=== PATIENT | female | born 1985 | race Caucasian/White ===

== ENCOUNTER 2024-11-13 17:08 | Emergency (ER) | payer BC, OTHER ==
[2024-11-13 17:38] VITALS: BP 124/69; PULSE 69; RESP 18; TEMP 98.3; BMI 35.9
[2024-11-13] MEDS ORDERED: LIDOCAINE 4% PATCH TP ONE (18:26)
[2024-11-13] MEDS ORDERED: ACETAMINOPHEN 500 MG TABLET (FP) ONE (18:26)
[2024-11-13] MEDS ORDERED: METHOCARBAMOL 500 MG TABLET ONE (18:26)
[2024-11-13] MEDS: METHOCARBAMOL 500 MG TABLET PO ONE (18:31)
[2024-11-13] MEDS ORDERED: ACETAMINOPHEN 325 MG TABLET (FP) ONE (18:32)
[2024-11-13] MEDS: LIDOCAINE 4% PATCH TP ONE (18:40)
[2024-11-13] MEDS: ACETAMINOPHEN 500 MG TABLET (FP) PO ONE (18:40)
[2024-11-14] MEDS ORDERED: LIDOCAINE PATCH REMOVAL MC ONE (06:30)
== END 2024-11-13 19:07 | disposition home or self-care (01) ==
LOC: JERFT 17:08
DX: R51.9 Headache, unspecified (principal); M54.2 Cervicalgia; V43.02XA Car driver injured in collision with other type car in nontraffic accident, initial encounter
CPT/HCPCS: 99283-25